=== PATIENT | male | born 1935 | race Caucasian/White ===

== ENCOUNTER 2020-09-30 18:46 | Day surgery (SDCO) | payer MEDICARE, OTHER ==
[~2020-09-30 18:46] MED LIST: GLUCOPHAGE500 MG PO; GLUCOTROL10 MG PO; MELOXICAM7.5 MG PO; METFORMIN HCL500 MG PO; PRINIVIL20 MG PO; PROSCAR5 MG PO; TERAZOSIN HCL5 MG PO
[2020-09-30 19:48] LABS: BASOPHIL 0.4 % (0-2); EOSINOPHIL 0.2 % (0-7); HCT 38.5 % (42.0-52.0); HGB 12.7 g/dl (13.2-18.0); LYMPHOCYTE 12.3 % (15-48); MCH 32.2 pg (25.0-31.0); MCV 97.5 fL (78.0-100.0); MONOCYTE 6.7 % (0-12); MPV 11.3 fL (6.0-9.5); NRBC 0; PLT 185 K/uL (150-400); RBC 3.95 M/uL (4.70-6.00); RDW 12.2 % (11.5-14.0); WBC 8.2 K/uL (4.0-10.5)
[2020-09-30 19:57] LABS: INR 1.18 (0.9-1.2); PROTHROMBIN TIME 14.2 SECONDS (11.4-13.6); PTT 24.7 SECONDS (22.2-34.7)
[2020-09-30 20:06] LABS: ALBUMIN 3.8 g/dL (3.4-5.0); BILIRUBIN - TOTAL 0.4 mg/dL (0.2-1.0); BUN/CREAT RATIO (CALC) 24.2 RATIO; CREATININE 0.91 mg/dL (0.67-1.17); GLOBULIN (CALCULATION) 3.2 g/dL
[2020-09-30 20:17] LABS: LACTIC ACID 1.9 mmol/L (0.4-1.9)
[2020-09-30 20:57] LABS: CORONAVIRUS 2019 SARS-COV-2 NEGATIVE (NEGATIVE); INFLUENZA A NAA NEGATIVE (NEGATIVE)
[2020-09-30 21:06] LABS: BILIRUBIN 1+ mg/dL (NEGATIVE); BLOOD NEGATIVE Ery/uL (NEGATIVE); CLARITY CLEAR (CLEAR); COLOR YELLOW (YELLOW); GLUCOSE (U) 2+ mg/dL (NORMAL); LEUKOCYTES NEGATIVE Leu/uL (NEGATIVE); NITRITE NEGATIVE (NEGATIVE); PROTEIN NEGATIVE (NEGATIVE); SPECIFIC GRAVITY 1.025 (1.001-1.030); UROBILINOGEN 0.2 mg/dL (0.2-1.0); pH 5.5 (5.0-9.0)
[2020-10-01 03:40] LABS: BASOPHIL 0.6 % (0-2); EOSINOPHIL 1.9 % (0-7); HCT 32.6 % (42.0-52.0); HGB 10.8 g/dl (13.2-18.0); LYMPHOCYTE 20.6 % (15-48); MCH 31.8 pg (25.0-31.0); MCHC 33.1 g/dL (32.0-36.0); MCV 95.9 fL (78.0-100.0); MONOCYTE 10.5 % (0-12); MPV 10.8 fL (6.0-9.5); NEUTROPHIL 66.1 % (41-80); NRBC 0; PLT 162 K/uL (150-400); RDW 12.3 % (11.5-14.0); WBC 6.8 K/uL (4.0-10.5)
--- NOTE | 2020-10-01 04:16 | NUR ---
PT UP OUT OF BED, DEMANDING TO GO HOME RN MIDWIFE CALLED, RN MIDWIFE SPOKE WITH PT, PT AWWARE OF LOCATION AND SITUATION BUT STATES NEED TO GO TO [place] AND REFUSES 0400 ASSESSMENT, VITAL SIGNS, MEDS, RN ASKED IF HE WANTED TO SPEAK WITH HIS SONS, PT STATED WANTED TO TALK TO MONTEZ SANCHEZ, RN CALLED MONTEZ AND LEFT VOICE MAIL TO CALL BACK, PT TOLD MONTEZ WAS SLEEPING AND UNAVAILABLE TO PICK HIM UP, PT STATED HE WOULD WAIT TILL MONTEZ WOKE UP BUT WAS GOING HOME ONCE HE WAKES UP. SITTER ORDERED AND MANAGER DRUG IS AT BEDSIDE AT THIS TIME.
[2020-10-01 04:17] LABS: BILIRUBIN - TOTAL 0.2 mg/dL (0.2-1.0); BUN/CREAT RATIO (CALC) 23.6 RATIO; CREATININE 0.89 mg/dL (0.67-1.17); GLOBULIN (CALCULATION) 3.1 g/dL; POTASSIUM 4.7 mmol/L (3.5-5.1); TOTAL PROTEIN 6.1 g/dL (6.4-8.2)
--- NOTE | 2020-10-01 10:18 | NUR ---
PT. IS OBS. PLEASE CONSIDER INPT OR D/C THANKS
[2020-10-01] MEDS ORDERED: ZOCOR20 MG PO (12:37)
[2020-10-01] MEDS ORDERED: NORVASC5 MG PO (19:15)
[2020-10-02 03:28] LABS: MCH 31.7 pg (25.0-31.0); MCHC 33.3 g/dL (32.0-36.0); MCV 95.1 fL (78.0-100.0); MPV 10.7 fL (6.0-9.5); RBC 3.47 M/uL (4.70-6.00); RDW 12.1 % (11.5-14.0); WBC 6.3 K/uL (4.0-10.5)
[2020-10-02 03:43] LABS: BUN/CREAT RATIO (CALC) 19.8 RATIO; CREATININE 0.96 mg/dL (0.67-1.17); POTASSIUM 4.2 mmol/L (3.5-5.1)
--- NOTE | 2020-10-03 13:42 | NUR ---
10/03/20 Mr. Owens lives alone. He has a rw, 3in1, and s.chair. His son and daughter visit daily. They provide laundry, meals, and housekeeping. They also have a camera set up in the home. Pt and family were educated to LTADD and emergency alert systems. - A referral was made to [facility] per family choice, affliations were explained. - Report given to JOANN Laura RN via Media Relations Coordinator.
== END 2020-10-03 17:00 | disposition other institution (70) ==
LOC: FER 18:46 → FTCU 22:56
PROVIDERS: Emergency Medicine; Hospitalist; Nurse Practitioner; ADMIT Internal Medicine
DX: I21.4 Non-ST elevation (NSTEMI) myocardial infarction (principal); I08.3 Combined rheumatic disorders of mitral, aortic and tricuspid valves; I10 Essential (primary) hypertension; E11.9 Type 2 diabetes mellitus without complications; N40.0 Benign prostatic hyperplasia without lower urinary tract symptoms; R53.1 Weakness; F03.90 Unspecified dementia, unspecified severity, without behavioral disturbance, psychotic disturbance, mood disturbance, and anxiety; E78.5 Hyperlipidemia, unspecified; K21.9 Gastro-esophageal reflux disease without esophagitis; M19.90 Unspecified osteoarthritis, unspecified site; I45.10 Unspecified right bundle-branch block; S89.92XA Unspecified injury of left lower leg, initial encounter; Z87.891 Personal history of nicotine dependence; Z79.84 Long term (current) use of oral hypoglycemic drugs; Z79.899 Other long term (current) drug therapy; Z96.653 Presence of artificial knee joint, bilateral; Z20.822 Contact with and (suspected) exposure to COVID-19; W19.XXXA Unspecified fall, initial encounter; Y92.009 Unspecified place in unspecified non-institutional (private) residence as the place of occurrence of the external cause
CPT/HCPCS: 36415; 70450; 71045; 72170; 73560; 80048; 80053; 80061; 81003; 82550; 82962; 83036; 83605; 83874; 84145; 84484; 85025; 85610; 85730; 87040; 87088; 93005; 97162; 97166; 97530-GP; 97535; G0378; J0456; J0696; J1650; J7050; U0002

== ENCOUNTER 2020-10-30 20:28 | Emergency (ER) | payer MEDICARE, OTHER ==
[~2020-10-30 20:28] MED LIST changes: +NORVASC5 MG PO; +ZOCOR20 MG PO
[2020-10-30 21:26] LABS: BASOPHIL 0.2 % (0-2); EOSINOPHIL 0 % (0-7); HCT 40.1 % (42.0-52.0); HGB 12.9 g/dl (13.2-18.0); LYMPHOCYTE 3.8 % (15-48); MCHC 32.2 g/dL (32.0-36.0); MCV 96.4 fL (78.0-100.0); MONOCYTE 5.6 % (0-12); MPV 11.1 fL (6.0-9.5); NRBC 0; PLT 188 K/uL (150-400); RBC 4.16 M/uL (4.70-6.00); RDW 11.7 % (11.5-14.0); WBC 12.5 K/uL (4.0-10.5)
[2020-10-30 21:38] LABS: ALBUMIN 3.3 g/dL (3.4-5.0); BILIRUBIN - TOTAL 0.8 mg/dL (0.2-1.0); BUN/CREAT RATIO (CALC) 21.9 RATIO; CREATININE 0.96 mg/dL (0.67-1.17); GLOBULIN (CALCULATION) 4.3 g/dL; POTASSIUM 4.3 mmol/L (3.5-5.1); TOTAL PROTEIN 7.6 g/dL (6.4-8.2)
[2020-10-30 21:48] LABS: LACTIC ACID 2.8 mmol/L (0.4-1.9)
[2020-10-30 22:32] LABS: CORONAVIRUS 2019 SARS-COV-2 NEGATIVE (NEGATIVE); INFLUENZA A NAA NEGATIVE (NEGATIVE)
[2020-10-31 01:04] LABS: BILIRUBIN NEGATIVE (NEGATIVE); BLOOD 2+ Ery/uL (NEGATIVE); CLARITY CLEAR (CLEAR); COLOR YELLOW (YELLOW); GLUCOSE (U) 2+ mg/dL (NORMAL); LEUKOCYTES NEGATIVE Leu/uL (NEGATIVE); NITRITE NEGATIVE (NEGATIVE); PROTEIN 1+ mg/dL (NEGATIVE); SPECIFIC GRAVITY 1.015 (1.001-1.030); UROBILINOGEN 0.2 mg/dL (0.2-1.0); pH 5.5 (5.0-9.0)
[2020-10-31 01:10] LABS: URINARY RBC 20-50
== END 2020-10-31 03:11 | disposition other institution (70) ==
LOC: FER 20:28
PROVIDERS: Emergency Medicine
DX: I72.4 Aneurysm of artery of lower extremity (principal); L02.214 Cutaneous abscess of groin; L03.314 Cellulitis of groin; I45.10 Unspecified right bundle-branch block; I10 Essential (primary) hypertension; I25.2 Old myocardial infarction; E11.9 Type 2 diabetes mellitus without complications; Z20.822 Contact with and (suspected) exposure to COVID-19; I77.819 Aortic ectasia, unspecified site; J98.11 Atelectasis
CPT/HCPCS: 36415; 71045; 71275; 80053; 81001; 82150; 83605; 84145; 84484; 85025; 87040; 87077; 87088; 87186; 93005; J2405; J2543; J3370; J7030; J7050; Q9967; U0002